=== PATIENT | female | born 1935 | race Asian ===

== ENCOUNTER 2016-03-19 07:05 | Day surgery (SDC) | payer MEDICARE ==
[~2016-03-19] VITALS: Ht 157.5 cm; Wt 49.0 kg
[~2016-03-19 07:05] MED LIST: ASCO1TAB36 PO; OMEP20CA11 PO; Sodium Chloride LOK Flush 10 mL Syringe IV PRN; fentaNYL-PF 50 mCg/mL 2 mL Inj IVPUSH PRN
[2016-03-19 07:29] VITALS: BP 119/75; PULSE 80; RESP 16; O2SAT 93
[2016-03-19] MEDS: 0.9% Sodium Chloride 1,000 ML IV SCH ×3 (07:39→08:12)
[2016-03-19 08:21] VITALS: BP 109/70; PULSE 67; RESP 14; O2SAT 96
[2016-03-19 08:31] VITALS: BP 116/69; PULSE 73; RESP 14; O2SAT 99
[2016-03-19 08:33] VITALS: BP 122/74; PULSE 74; RESP 14; O2SAT 96
--- NOTE | 2016-03-19 08:41 | ENDO ---
[address] [address] ENDOSCOPY PROCEDURE PATIENT: LORI FAY : 1935 MR#: [id number] ADMIT: 03/19/2016 JOB ID: [id number] DATE: 03/19/2016 TYPE OF OPERATION: 1. Esophagogastroduodenoscopy with biopsy. 2. Colonoscopy with biopsy. PREOPERATIVE DIAGNOSIS(ES): 1. Riggs esophagus. 2. Colorectal cancer screening. POSTOPERATIVE DIAGNOSIS(ES): 1. Normal upper endoscopy, status post biopsy. 2. Multiple rectal ulcers, approximately three, largest size approximately 8 mm, status post biopsy. ANESTHESIA: 1. Fentanyl 75 mcg. 2. Versed 3 mg IV administered. BLOOD LOSS: Minimal. DESCRIPTION OF PROCEDURE: After risks and benefits were explained to the patient, informed consent was obtained. After adequate anesthesia was administered, upper endoscope was then inserted into the mouth intubating through esophagus, stomach, second portion of duodenum. Mucosa carefully examined. After the procedure was done, the scope withdrawn and procedure terminated. Colonoscope was then inserted per the rectum to the cecum. Mucosa carefully examined. Prep of the patient was fair. After the procedure was done, the scope withdrawn and procedure terminated. FINDINGS: Upon inspection of the esophagus, the esophagus was normal without masses, ulcers or lesions. Z-line was also regular. The Z-line located 40 cm from incisors. Upon entering the stomach, the stomach was normal without masses, ulcers, lesions. Retroflexion is normal. The duodenal bulb, first and second portion were normal. Biopsies taken in the distal esophagus to rule out Riggs esophagus. Grossly the Z-line did not have the appearance of Riggs esophagus. Upon inspection of the anus, no masses, hemorrhoids, ulcers, fissures that were seen. Throughout the entire examination, there were multiple rectal ulcers, clean based, nonbleeding, approximately three of them, largest size 8 mm in diameter status post biopsy to rule out malignancy. No polyps or masses were seen. Retroflexion was normal. IMPRESSION: 1. Normal upper endoscopy, status post biopsy. 2. Multiple rectal ulcers, largest size 8 mm, clean based, nonbleeding, sent for biopsy. RECOMMENDATIONS: 1. Await pathology results. 2. Followup in GI clinic as needed.
--- NOTE | 2016-03-21 15:41 | PATH ---
SURGICAL PATHOLOGY Attending Physician:Cuong Luna MD CASE STATUS: Signed Out PATIENT NAME: LORI FAY PID: [id number] : 1935 DATE COLLECTED:03/19/2016 16:34 SPECIMEN: 1: Esophagus, Biopsy 2: Rectum, Biopsy CLINICAL HISTORY: A: DISTAL ESOPHAGUS BIOPSY B: RECTAL ULCERS BIOPSY FINAL DIAGNOSIS: 1.DISTAL ESOPHAGUS BIOPSY: SQUAMOCOLUMNAR JUNCTIONAL MUCOSA WITH REFLUX-RELATED CHANGES. NEGATIVE FOR INTESTINAL METAPLASIA. NO EVIDENCE OF DYSPLASIA OR MALIGNANCY. B.RECTAL ULCERS BIOPSY: ULCERATED COLONIC MUCOSA. ADDITIONAL LEVELS WERE EXAMINED. NO EVIDENCE OF DYSPLASIA OR MALIGNANCY, SEE COMMENT. ICD10 CODE K21.0 NOTE: B. The biopsies of rectal ulcer show no evidence of dysplasia or malignancy. The differential diagnosis includes ischemia, trauma/prolapse, unsampled neoplasm or idiopathic inflammatory bowel disease. Endoscopic correlation is recommended. GROSS DESCRIPTION: The specimen is received in two formalin filled containers labeled with the patient's name. 1). The specimen is sublabeled "distal esophagus" and consists of 2 portions of tissue which aggregate to 0.3 x 0.3-0.2 CM. The specimen is entirely submitted in cassette 1A. 2). The specimen is sublabeled "rectal ulcer" and consists of 2 portions of tissue which aggregate to 0.2 x 0.2 x 0.1 CM. The specimen is entirely submitted in cassette 2A. 03/19/2016 [facility] MICRO DESCRIPTION: See diagnosis. ICD-9 CODES: CPT CODES: 1: 25160 2: 13632 Electronically Signed Out Humera Camargo MD [facility]ology [facility] [address], [place] [address] Technical component performed at [facility], [address], [place], [address]
== END 2016-03-19 23:59 | disposition home or self-care (01) ==
LOC: END 07:05
PROVIDERS: ATTEND Internal Medicine Gastroenterology
DX: Z12.11 Encounter for screening for malignant neoplasm of colon (principal); K62.6 Ulcer of anus and rectum; K22.70 Barrett's esophagus without dysplasia; K57.30 Diverticulosis of large intestine without perforation or abscess without bleeding
CPT/HCPCS: 43239; 45380; G0500; J2250; J7030